=== PATIENT | male | born 1950 | race Caucasian/White ===

== ENCOUNTER 2022-05-01 16:33 | Emergency (ER) | payer MEDICARE, OTHER, SELFPAY ==
[2022-05-01 16:39] VITALS: BP 121/84; PULSE 119; RESP 22; TEMP 36.2; O2SAT 97; BMI 22.9
--- NOTE | 2022-05-01 16:55 | CRLHL7_ITS ---
For Patients: As a result of the Century Cures Act, medical imaging exams and procedure reports are released immediately into your electronic medical record. You may view this report before your referring provider. If you have questions, please contact your health care provider. INDICATION: Altered speech. History of left frontal temporal glioblastoma, status post left frontal craniotomy and surgical resection 12/29/2020, radiotherapy 01/19/2021 through 02/27/2021 and concurrent temozolomide, with possible adjuvant temozolomide. TECHNIQUE: Noncontrast axial CT of the head. Coronal and sagittal reformats. Bone and soft tissue algorithms. COMPARISON: CT head 01/22/2022, outside MRI brain report 05/20/2021 FINDINGS: Postoperative changes of left frontal craniotomy, with stable dural thickening and 3-4 mm predominantly hypodense extra-axial fluid collection underlying the craniotomy flap. Confluent white matter hypoattenuation throughout the left cerebral hemisphere and right parietal region is not significantly change relative to 01/22/2022. Similar mild generalized cerebral volume loss, with slight ex vacuo enlargement of the left lateral ventricle. No acute intracranial hemorrhage. No midline shift, hydrocephalus or herniation. Romero-white matter differentiation is grossly maintained. Chronic lacunar infarcts in the left caudate and left cerebellum. Midline structures are unremarkable. Calcific plaquing of the intracranial ICAs and vertebral arteries. Moderate mucosal thickening throughout the paranasal sinuses with relative sparing of the frontal sinuses. No mastoid effusions. Unremarkable orbits. IMPRESSION: 1. No CT evidence of acute intracranial abnormality. No significant interval change relative to 01/22/2022. 2. Similar postsurgical/posttreatment changes related to patient`s left frontotemporal glioblastoma, with re-demonstration of confluent white matter hypoattenuation throughout the left cerebral hemisphere and right parietal region. Please note that all CT scans at this facility use dose modulation, iterative reconstruction, and/or weight-based dosing when appropriate to reduce radiation dose to as low as reasonably achievable. Dictated by Naz Prado MD @ 05/01/2022 7:58:44 PM (Electronically Signed)
--- NOTE | 2022-05-01 16:58 | ED.NEUROSD ---
HPI - Neuro Symptoms/Deficit General Chief Complaint: Neuro Symptoms/Altered Deficit Stated Complaint: Possible stroke earlier, slurred speech Time Seen by Provider: 05/01/22 16:46 History of Present Illness HPI Narrative: This 71-year-old male comes in reporting altered speech that began last evening. He states that he has not been feeling well for the past 4 days and has had occasional cough. His daughter states that he has had some constipation. There is no report of fever. He is able to ambulate. 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 He had 80% of this tumor removed about 16 months ago. He does have history of stroke and wonders if he is having another cerebrovascular accident. He does not report a new headache. He does have some mild chronic pain on the left side of his head where he had his surgery. He is able to speak with me but has some difficulty forming words. I am able to understand him clearly. Related Data Home Medications Medication Instructions Recorded Confirmed allopurinol 300 mg tablet 300 mg PO DAILY 05/01/22 05/01/22 amlodipine 5 mg tablet 5 mg PO DAILY 05/01/22 05/01/22 aspirin 81 mg tablet,delayed 81 mg PO DAILY 05/01/22 05/01/22 release (Adult Aspirin Regimen) atorvastatin 20 mg tablet 20 mg PO DAILY 05/01/22 05/01/22 levetiracetam 500 mg tablet 500 mg PO BID 05/01/22 05/01/22 (Keppra) mecobalamin (vitamin B12) 1,000 1,000 mcg PO DAILY 05/01/22 05/01/22 mcg chewable tablet metoprolol succinate 25 mg 25 mg PO BID 05/01/22 05/01/22 tablet,extended release 24 hr omeprazole 20 mg capsule,delayed 20 mg PO BID 05/01/22 05/01/22 release Previous Rx's Medication Instructions Recorded hydrocodone 5 mg-acetaminophen 325 1 tab PO Q6H PRN pain #30 tabs 12/30/21 mg tablet Allergies Allergy/AdvReac Type Severity Reaction Status Date / Time Penicillins Allergy Severe Anaphylaxis Verified 05/01/22 16:52 Review of Systems Status of ROS: Reports: 10 or more systems reviewed and unremarkable except as noted in History and below Narrative: Constitutional: No fevers, no weight gain or loss. Eyes: No discharge. No vision changes. HENT: No congestion, no sore throat, no ear pain. Cardiovascular: No chest pain, no palpitations. Respiratory: No shortness of breath, no wheezes. Occasional cough. Gastrointestinal: No abdominal pain, no vomiting, no diarrhea. Genitourinary: No dysuria, no hematuria. Musculoskeletal: Normal range of motion. Skin: No rashes, no pruritis. Neurological: No dizziness, weakness, sensory change. Dysarthria. Endo/Heme/Allergies: No bruising or bleeding. No polydipsia. Pysch: no suicidality, no anxiety, no insomnia. All other systems reviewed and are negative. [facility] Social History Smoking Status: Current every day smoker How often do you have a drink containing alcohol: 4 or more times a week How many standard drinks containing alcohol do you have on a typical day: 1 or 2 AUDIT-C Alcohol total score: 4 Non-prescribed substance use: marijuana (any form) Non-prescribed substance use details: medical marijuana Exam Narrative: Exam Narrative: Constitutional: Well-developed, well-nourished, no acute distress. HEENT: Normocephalic, atraumatic. Neck: Normal range of motion. Nontender. Supple. Heart: Regular. No murmurs. Tachycardia, rate around 105 beats per minute. Intact distal pulses. Lungs: Clear to auscultation. No chest discomfort. No wheezes, rhonchi, or rales. Abdomen: Normal bowel sounds. Nontender. No rebound tenderness. Genitalia: Deferred. Back: No midline tenderness. Normal range of motion. Extremities: Normal range of motion. No injury. Skin: Intact. No rash. Warm. No erythema or pallor. Neurologic: No altered sensation. No weakness. Alert and oriented. No facial asymmetry. Tongue is midline. [id number] is normal. No pronator drift. Visitor Services Coordinator strength is equal bilaterally. Heel to allen is normal bilaterally. He is able to speak clearly but does so with difficulty. Psychiatric: No suicidality. No anxiety or depression. No insomnia. Nursing notes and vitals signs are reviewed. Const: Vital Signs, click to edit/add: Vital Signs - 24 hr 05/01/22 16:39 Temperature 97.1 F L Pulse Rate [Pulse Oximeter] 119 H Respiratory Rate 22 Blood Pressure [Le ft Upper Arm] 121/84 Pulse Oximetry 97 Oxygen Delivery Me thod Room Air Course Vital Signs Vital signs: Initial Vital Signs Temperature 97.1 F L 05/01/22 16:39 Temperature Source Temporal Artery Scan 05/01/22 16:39 Pulse Rate 119 H 05/01/22 16:39 Respiratory Rate 22 05/01/22 16:39 Blood Pressure 121/84 05/01/22 16:39 Blood Pressure Mean 96 05/01/22 16:39 Blood Pressure Position Supine 05/01/22 16:39 Pulse Oximetry 97 05/01/22 16:39 Oxygen Delivery Method 05/01/22 16:39 Vital Signs Temperature 97.1 F L 05/01/22 16:39 Pulse Rate 119 H 05/01/22 16:39 Respiratory Rate 22 05/01/22 16:39 Blood Pressure 121/84 05/01/22 16:39 Pulse Oximetry 97 05/01/22 16:39 Oxygen Delivery Method 05/01/22 16:39 Temperature 97.1 F L 05/01/22 16:39 Pulse Rate 119 H 05/01/22 16:39 Respiratory Rate 22 05/01/22 16:39 Blood Pressure 121/84 05/01/22 16:39 Pulse Oximetry 97 05/01/22 16:39 Oxygen Delivery Method 05/01/22 16:39 MDM - Neuro Symptoms/Deficit MDM Narrative Medical decision making narrative: This patient comes in reporting generalized malaise over the past 4 days. There is concern about recurrent stroke as he does have a history of glioblastoma that was 80% resected about a urine half ago. His vital signs are normal except for increased heart rate. His neurologic exam is also completely normal. He does have some extra effort in speaking but he is easy to understand. He reports that he does have some fluctuant difficulties with speech since his diagnosis of the glioblastoma and the surgery to remove the tumor. His CT scan of his head today read returns with no acute findings. Additionally his labs are also reassuring. He had did return positive for influenza A. This likely explains his symptoms. There is no evidence of new cerebrovascular accident. He is okay to be discharged home. His symptoms did start outside of the typical window for prescribing Tamiflu but I decided to make an exception here given his underlying glioblastoma condition. He is encouraged to use [id number] medicines also as needed and directed. Lab Data Labs: Lab Results 05/01/22 05/01/22 05/01/22 Range/Units 16:30 16:30 16:30 WBC 5.45 (4.50-11.00) K/uL RBC 4.33 (4.30-5.90) m/uL Hgb 14.8 (13.5-17.5) gm/dL Hct 43.8 (37.0-53.0) % MCV 101 H (80-100) fL MCH 34 (26-34) pg MCHC 34 (32-36) gm/dL RDW Coeff of Marilin 13.5 (11.5-15.5) % Plt Count 152 (140-440) K/uL Neut % (Auto) 57.2 (42.0-72.0) % Lymph % (Auto) 32.3 (20-44) % Sullivan % (Auto) 8.4 (0.0-11.0) % Eos % (Auto) 1.5 (0.0-7.0) % Baso % (Auto) 0.4 (0.0-3.0) % Neut # (Auto) 3.12 (1.7-7.0) K/uL Lymph # (Auto) 1.76 (0.90-2.90) K/uL Sullivan # (Auto) 0.50 (0.00-0.90) K/UL Eos # (Auto) 0.08 (0.00-0.50) K/uL Baso # (Auto) 0.02 (0.00-0.30) K/uL INR 0.84 L (0.91-1.10) Sodium 137 (135-149) mmol/L Potassium 4.0 (3.6-5.1) mmol/L Chloride 102 (96-114) mmol/L Carbon Dioxide 24 (20-32) mmol/L BUN 24 (7-30) mg/dL Creatinine 1.3 (0.5-1.5) mg/dL Estimated Creat Clear 53.33 Estimated GFR 59 ml/min Glucose 91 (60-115) mg/dL Calcium 9.3 (8.4-10.6) mg/dL Total Bilirubin 0.5 (0.1-1.5) mg/dL Direct Bilirubin 0.4 (0.0-0.5) mg/dL AST 36 H (12-35) U/L ALT 22 (4-50) U/L Alkaline Phosphatase 86 (40-150) U/L Total Protein 8.0 (6.0-8.3) g/dL Albumin 4.5 (3.3-5.0) g/dL SARS-CoV-2 (PCR) (Negative) Influenza Type A (PCR) (Negative) Influenza Type B (PCR) (Negative) RSV (PCR) (Negative) 05/01/22 Range/Units 16:30 WBC (4.50-11.00) K/uL RBC (4.30-5.90) m/uL Hgb (13.5-17.5) gm/dL Hct (37.0-53.0) % MCV (80-100) fL MCH (26-34) pg MCHC (32-36) gm/dL RDW Coeff of Marilin (11.5-15.5) % Plt Count (140-440) K/uL Neut % (Auto) (42.0-72.0) % Lymph % (Auto) (20-44) % Sullivan % (Auto) (0.0-11.0) % Eos % (Auto) (0.0-7.0) % Baso % (Auto) (0.0-3.0) % Neut # (Auto) (1.7-7.0) K/uL Lymph # (Auto) (0.90-2.90) K/uL Sullivan # (Auto) (0.00-0.90) K/UL Eos # (Auto) (0.00-0.50) K/uL Baso # (Auto) (0.00-0.30) K/uL INR (0.91-1.10) Sodium (135-149) mmol/L Potassium (3.6-5.1) mmol/L Chloride (96-114) mmol/L Carbon Dioxide (20-32) mmol/L BUN (7-30) mg/dL Creatinine (0.5-1.5) mg/dL Estimated Creat Clear Estimated GFR ml/min Glucose (60-115) mg/dL Calcium (8.4-10.6) mg/dL Total Bilirubin (0.1-1.5) mg/dL Direct Bilirubin (0.0-0.5) mg/dL AST (12-35) U/L ALT (4-50) U/L Alkaline Phosphatase (40-150) U/L Total Protein (6.0-8.3) g/dL Albumin (3.3-5.0) g/dL SARS-CoV-2 (PCR) Negative SARS-CoV-2 (Negative) Influenza Type A (PCR) POSITIVE PCR FLU A A (Negative) Influenza Type B (PCR) Negative PCR FLU B (Negative) RSV (PCR) Negative PCR RSV (Negative) ECG Data Attestation: I personally reviewed and interpreted this ECG as follows: Interpretation: Sinus tachycardia. Rate is 108 beats per minute. There are no specific ST or T-wave abnormalities. Discharge Plan Discharge Clinical Impression: Influenza A Patient Disposition: Home w/ Parent or Adult Condition: Stable Additional Instructions: Take medication as prescribed. Use [id number] medicines also as needed and directed. Follow up with MD or return if worsening. Prescriptions: No Action aspirin [Adult Aspirin Regimen] 81 mg tablet,delayed release (DR/EC) 81 mg PO DAILY allopurinol 300 mg tablet 300 mg PO DAILY omeprazole 20 mg capsule,delayed release(DR/EC) 20 mg PO BID levetiracetam [Keppra] 500 mg tablet 500 mg PO BID mecobalamin (vitamin B12) 1,000 mcg tablet,chewable 1,000 mcg PO DAILY atorvastatin 20 mg tablet 20 mg PO DAILY amlodipine 5 mg tablet 5 mg PO DAILY metoprolol succinate 25 mg tablet extended release 24 hr 25 mg PO BID hydrocodone-acetaminophen 5-325 mg tablet 1 tab PO Q6H PRN (Reason: pain) Qty: 30 0RF Follow Up/Referrals: Richard Booth MD [Primary Care Provider] - Stand Alone Forms: [employer] Info Instructions
[2022-05-01 17:41] LABS: Basophils Absolute Auto 0.02 K/uL (0.00-0.30); Basophils Percent Auto 0.4 % (0.0-3.0); Eosinophils Absolute Auto 0.08 K/uL (0.00-0.50); Eosinophils Percent Auto 1.5 % (0.0-7.0); Hematocrit 43.8 % (37.0-53.0); Hemoglobin* 14.8 gm/dL (13.5-17.5); Immature Granulocytes Abs Auto 0.01 K/uL (0.00-0.30); Immature Granulocytes Pct Auto 0.2 %; Lymphocytes Absolute Auto 1.76 K/uL (0.90-2.90); Lymphocytes Percent Auto 32.3 % (20-44); Mean Corpuscular HGB Conc 34 gm/dL (32-36); Mean Corpuscular Hemoglobin 34 pg (26-34); Mean Corpuscular Volume 101 fL (80-100); Monocytes Percent Auto 8.4 % (0.0-11.0); Neutrophils Absolute Auto 3.12 K/uL (1.7-7.0); Neutrophils Percent Auto 57.2 % (42.0-72.0); Platelet Count* 152 K/uL (140-440); RDW Coefficient of Variation % 13.5 % (11.5-15.5); Red Blood Count 4.33 m/uL (4.30-5.90); White Blood Count* 5.45 K/uL (4.50-11.00)
[2022-05-01 17:47] LABS: Slide Review Reflex No
[2022-05-01 18:05] VITALS: BP 129/84; PULSE 113; RESP 18; O2SAT 97
[2022-05-01 18:06] LABS: INR 0.84 (0.91-1.10)
[2022-05-01 18:08] LABS: Albumin* 4.5 g/dL (3.3-5.0); Chloride* 102 mmol/L (96-114); Sodium* 137 mmol/L (135-149)
[2022-05-01 18:11] LABS: Alanine Aminotransferase* 22 U/L (4-50); Alkaline Phosphatase* 86 U/L (40-150); Aspartate Amino Transferase* 36 U/L (12-35); Bilirubin Direct* 0.4 mg/dL (0.0-0.5); Bilirubin Total* 0.5 mg/dL (0.1-1.5); Blood Urea Nitrogen* 24 mg/dL (7-30); Carbon Dioxide* 24 mmol/L (20-32); Creatinine* 1.3 mg/dL (0.5-1.5); Est. Creatinine Clearance* 53.33; Estimated Glomerular Filt Rate 59 ml/min; Glucose* 91 mg/dL (60-115)
[2022-05-01 18:12] LABS: Calcium* 9.3 mg/dL (8.4-10.6)
[2022-05-01 18:30] VITALS: BP 112/77; PULSE 114; RESP 18; O2SAT 95
[2022-05-01 18:34] LABS: PCR FLU A POSITIVE PCR FLU A (Negative); PCR FLU B Negative PCR FLU B (Negative); PCR RSV Negative PCR RSV (Negative)
[2022-05-01 18:35] LABS: SARS PCR* Negative SARS-CoV-2 (Negative)
== END 2022-05-01 19:07 | disposition home or self-care (01) ==
PROVIDERS: Emergency Provider Emergency Medicine Emergency Medical Services; PCP Family Medicine
DX: J09.X2 Influenza due to identified novel influenza A virus with other respiratory manifestations (principal)
CPT/HCPCS: 36415; 70450; 80048; 80076; 85025; 85610; 87502; 87634; 87635; 93005; 99284